=== PATIENT | male | born 1985 | race Caucasian/White ===

== ENCOUNTER 2017-07-22 20:09 | Emergency (ER) | payer OTHER ==
[2017-07-22] MEDS ORDERED: amLODIPine 5 MG Tab PO ONE (20:40)
--- NOTE | 2017-07-22 20:40 | EDM.PDOC ---
ED HPI GENERAL MEDICAL PROBLEM - General Chief Complaint: Chest Pain Stated Complaint: CHEST PAIN/LEFT ARM PAIN Time Seen by Provider: 07/22/17 20:20 Source of Information: Reports: Patient History Limitations: Reports: No Limitations - History of Present Illness INITIAL COMMENTS - FREE TEXT/NARRATIVE: 32-year-old male with a chief complaint of chest pain. The patient has a history of recently diagnosed hypertension and was started on lisinopril about a week ago. States that he's been having chest pains for about 2 weeks. Comes into the emergency department because his primary care provider advised him that if he had significant chest pain he should come in. Pain is located in the left upper chest area. Feels like a "knot". No clear provoking or relieving factors. Not exertional. Usually mild, waxes and wanes. It seemed worse this evening so the patient came in. He also felt mildly short of breath. Continues to have the discomfort but it is mild at this time. No abdominal pain, nausea, or vomiting. No lower extremity pain, swelling, no recent immobilization or travel or surgery. No fever, cough, or recent illness. He's been checking his blood pressure at home since starting lisinopril and his continued to be in the 150s over 90s for the most part. Middle Chest Pain Score (Numeric/FACES): 4 - Related Data Allergies Allergy/AdvReac Type Severity Reaction Status Date / Time No Known Allergies Allergy Verified 07/22/17 20:19 Home Meds: Home Meds Lisinopril 40 mg PO DAILY 07/22/17 [History] amLODIPine [Norvasc] 5 mg PO DAILY #30 tablet 07/22/17 [Rx] Past Medical History Cardiovascular History: Reports: Hypertension Social & Family History - Tobacco Use Smoking Status *Q: Never Smoker - Caffeine Use Caffeine Use: Reports: Coffee - Recreational Drug Use Recreational Drug Use: No ED ROS GENERAL - Review of Systems Review Of Systems: See Below Constitutional: Denies: Fever HEENT: Reports: No Symptoms Respiratory: Denies: Cough Cardiovascular: Reports: Chest Pain Endocrine: Reports: No Symptoms GI/Abdominal: Denies: Abdominal Pain : Reports: No Symptoms Musculoskeletal: Reports: No Symptoms Skin: Reports: No Symptoms Neurological: Reports: No Symptoms Psychiatric: Reports: No Symptoms ED EXAM, GENERAL - Physical Exam Exam: See Below Exam Limited By: No Limitations General Appearance: Alert, WD/WN, No Apparent Distress Eye Exam: Bilateral Eye: Normal Inspection Ears: Normal External Exam Nose: Normal Inspection Throat/Mouth: Normal Inspection, Normal Voice, No Airway Compromise Head: Atraumatic, Normocephalic Neck: Normal Inspection, Supple, Non-Tender, Full Range of Motion Respiratory/Chest: No Respiratory Distress, Lungs Clear, Normal Breath Sounds, No Accessory Muscle Use, Chest Non-Tender Cardiovascular: Normal Peripheral Pulses, Regular Rate, Rhythm, No Edema, No JVD , No Murmur, No Rub GI/Abdominal: Soft, Non-Tender, No Distention Back Exam: Normal Inspection Extremities: Normal Inspection. No: Pedal Edema, Juan's Sign, Increased Warmth , Redness Neurological: Alert, Oriented, Normal Cognition, No Motor/Sensory Deficits Psychiatric: Normal Affect, Normal Mood Skin Exam: Warm, Dry, Intact, Normal Color, No Rash Course - Vital Signs Last Recorded V/S: Last Vital Signs Temp 36.3 C 07/22/17 20:15 Pulse 62 07/22/17 21:31 Resp 15 07/22/17 21:31 BP 151/103 H 07/22/17 21:31 Pulse Ox 95 07/22/17 21:31 - Orders/Labs/Meds Orders: Active Orders 24 hr Category Date Time Status Chest 1V Frontal [CR] Stat Exams 07/22/17 20:39 Taken Labs: Laboratory Tests 07/22/17 07/22/17 Range/Units 20:50 20:50 WBC 6.55 (4.23-9.07) K/mm3 RBC 5.05 (4.63-6.08) M/mm3 Hgb 15.6 (13.7-17.5) gm/L Hct 44.0 (40.1-51.0) % MCV 87.1 (79.0-92.2) fl MCH 30.9 (25.7-32.2) pg MCHC 35.5 (32.2-35.5) g/dl RDW Std Deviation 40.0 (35.1-43.9) fL Plt Count 258 (163-337) K/mm3 MPV 9.6 (9.4-12.3) fl Neut % (Auto) 48.9 (34.0-67.9) % Lymph % (Auto) 40.5 (21.8-53.1) % [place] % (Auto) 8.4 (5.3-12.2) % Eos % (Auto) 1.7 (0.8-7.0) Baso % (Auto) 0.5 (0.1-1.2) % Neut # (Auto) 3.21 (1.78-5.38) K/mm3 Lymph # (Auto) 2.65 (1.32-3.57) K/mm3 [place] # (Auto) 0.55 (0.30-0.82) K/mm3 Eos # (Auto) 0.11 (0.04-0.54) K/mm3 Baso # (Auto) 0.03 (0.01-0.08) K/mm3 Sodium 143 (136-145) mEq/L Potassium 3.5 (3.5-5.1) mEq/L Chloride 105 (98-107) mEq/L Carbon Dioxide 31 (21-32) mEq/L Anion Gap 10.5 (5-15) BUN 16 (7-18) mg/dL Creatinine 1.0 (0.7-1.3) mg/dL Est Cr Clr Drug Dosing 115.32 mL/min Estimated GFR (MDRD) > 60 (>60) mL/min BUN/Creatinine Ratio 16.0 (14-18) Glucose 110 H (74-106) mg/dL Calcium 9.5 (8.5-10.1) mg/dL Total Bilirubin 0.4 (0.2-1.0) mg/dL AST 40 H (15-37) U/L ALT 121 H (16-63) U/L Alkaline Phosphatase 58 (46-116) U/L Troponin I < 0.017 (0.00-0.056) ng/mL Total Protein 7.6 (6.4-8.2) g/dl Albumin 4.1 (3.4-5.0) g/dl Globulin 3.5 gm/dL Albumin/Globulin Ratio 1.2 (1-2) Meds: Medications Discontinued Medications Generic Name Dose Route Start Last Admin Trade Name Freq PRN Reason Stop Dose Admin Amlodipine Besylate 10 mg 07/22/17 20:40 07/22/17 20:49 Norvasc PO 07/22/17 20:41 10 mg ONETIME ONE Administration - Re-Assessments/Exams Free Text/Narrative Re-Assessment/Exam: 07/22/17 22:06 EKG shows normal sinus rhythm, no significant ST or T-wave abnormalities. Chest x-ray shows normal mediastinum and normal cardiac silhouette, no pneumothorax, normal exam. His troponin is negative. His pain has been constant for 2 weeks, just slightly worse this evening. I have a low suspicion for dangerous etiology. His blood pressure is quite high, it was as high as 190 systolic. Patient was given 10 mg of amlodipine here and his systolic is now 150. I think he probably needs to be on 2 agents as his lisinopril dose is already maxed out. We'll start 5 mg of amlodipine daily, advised patient to check blood pressure daily and keep a log for his next primary care appointment.PERC negative. Departure - Departure Time of Disposition: 21:49 Disposition: Home, Self-Care 01 Clinical Impression: Chest pain at rest Hypertension Qualifiers: Hypertension type: unspecified Qualified Code(s): I10 - Essential (primary) hypertension Prescriptions: amLODIPine [Norvasc] 5 mg PO DAILY #30 tablet Instructions: Nonspecific Chest Pain, [id number] Referrals: Julisa Crum, DO [Primary Care Provider] - Forms: ED Department Discharge Additional Instructions: 1. Continue to take lisinopril. Start taking amlodipine as prescribed. OK to take these meds together. 2. Follow up with Julisa Crum as soon as possible 3. Return to the Emergency Department if you have worsening chest pain or any other concerning symptoms - My Orders Last 24 Hours: My Active Orders 07/22/17 20:39 Chest 1V Frontal [CR] Stat - Assessment/Plan Last 24 Hours: My Active Orders 07/22/17 20:39 Chest 1V Frontal [CR] Stat
[2017-07-22 21:33] VITALS: BP 151/103
--- NOTE | 2017-07-24 10:32 | CR ---
Chest: Portable view of the chest was obtained. Comparison: No prior chest x-ray. Heart size and mediastinum are within normal limits. Lungs are clear. Bony structures are grossly intact. Impression: 1. Nothing acute is identified on portable chest x-ray. Diagnostic code #1
== END 2017-07-22 21:59 | disposition home or self-care (01) ==
LOC: JD.ED 20:09
DX: R07.9 Chest pain, unspecified (principal); I10 Essential (primary) hypertension; Z79.899 Other long term (current) drug therapy
CPT/HCPCS: 36415; 71010; 80053; 84484; 85025; 99285; A9270